=== PATIENT | male | born 1955 | race African-American/Black ===

== ENCOUNTER 2022-08-06 13:54 | Emergency (ER) | payer MEDICARE ==
[2022-08-06] MEDS ORDERED: Ketorolac Tromethamine 30 MG/ML VIAL ONE (15:56)
[2022-08-06] MEDS ORDERED: Acetaminophen 500 MG TAB ONE (19:10)
== END 2022-08-06 20:16 | disposition home or self-care (01) ==
LOC: CSHERS 13:54
DX: T14.8XXA Other injury of unspecified body region, initial encounter (principal); M54.9 Dorsalgia, unspecified; G89.29 Other chronic pain; Z87.891 Personal history of nicotine dependence; I50.9 Heart failure, unspecified; E11.9 Type 2 diabetes mellitus without complications; E78.5 Hyperlipidemia, unspecified; I11.0 Hypertensive heart disease with heart failure; Z86.73 Personal history of transient ischemic attack (TIA), and cerebral infarction without residual deficits; I48.0 Paroxysmal atrial fibrillation; D64.9 Anemia, unspecified; Z79.899 Other long term (current) drug therapy; W19.XXXA Unspecified fall, initial encounter
CPT/HCPCS: 70450; 71250; 72125; 74177; 96372; J1885

== ENCOUNTER 2024-03-06 04:23 | Emergency (ER) | payer MEDICARE, OTHER ==
[2024-03-06 06:09] LABS: #Basophils 0.03 10x3/uL (0.0-0.2); #Eosinophils 0.08 10x3/uL (0.0-0.5); #Monocytes 1.23 10x3/uL (0.0-1.1); #Neutrophils 6.67 10x3/uL (1.5-8.4); %Basophils 0.3 % (0.0-2.0); %Eosinophils 0.9 % (0.0-6.0); %Lymphocytes 14.4 % (18.0-47.0); %Monocytes 13.1 % (0.0-10.0); %Neutrophils 70.9 % (40.0-75.0); Hemoglobin 12.7 g/dL (13.5-17.5); Mean Corpuscular HGB CONC 30.2 g/dL (32.0-36.0); Mean Corpuscular Hemoglobin 28.7 pg (27.0-33.0); RBC Distribution Width 15.2 % (11.5-14.5); Red Blood Cell (RBC) Count 4.42 10x6/uL (4.32-5.72)
[2024-03-06 06:22] LABS: ALT (SGPT) 23 U/L (8-55); AST (SGOT) 17 U/L (5-34); Albumin 3.9 g/dL (3.4-4.8); Alkaline Phosphatase 166 U/L (40-110); Anion Gap 16 mmol/L (10-20); BUN (Urea Nitrogen) 29 mg/dL (8.4-25.7); Bilirubin, Total 0.4 mg/dL (0.2-1.2); Calc. Creatinine Clearance 0 mL/min (70-130); Calcium 9.6 mg/dL (7.8-10.44); Carbon Dioxide 17 mmol/L (23-31); Chloride 112 mmol/L (98-107); Estimated GFR 42; Globulin 5.8 g/dL (2.4-3.5); Glucose 114 mg/dL (80-115); Lipase 71 U/L (8-78); Magnesium 2.1 mg/dL (1.6-2.6); Potassium 4.8 mmol/L (3.5-5.1); Protein, Total 9.7 g/dL (5.8-8.1); Sodium 140 mmol/L (136-145)
[2024-03-06 06:24] LABS: Large Platelets SLIGHT (None Seen); Mean Platelet Volume 10.1 fL (7.4-10.4); Platelet Adequacy Comment Appears Adequate; Platelet Clumps SLIGHT; Platelet Count 318 10x3/uL (150-450); RBC Morph Comment Within Normal Limits
== END 2024-03-06 06:54 | disposition home or self-care (01) ==
LOC: CSHERS 04:23
DX: K52.9 Noninfective gastroenteritis and colitis, unspecified (principal); E11.9 Type 2 diabetes mellitus without complications; E78.5 Hyperlipidemia, unspecified; I11.0 Hypertensive heart disease with heart failure; I50.9 Heart failure, unspecified; I48.91 Unspecified atrial fibrillation; Z79.01 Long term (current) use of anticoagulants; Z79.899 Other long term (current) drug therapy; Z87.891 Personal history of nicotine dependence
CPT/HCPCS: 80053; 83690; 83735; 85025; 87428; 93005; 99284